=== PATIENT | female | born 1960 | race Two or more races ===

== ENCOUNTER → 2016-11-18 | Outpatient (CLI) | payer BC ==
--- NOTE | 2016-11-23 10:28 | EEG PRO FEE REPORT ---
EEG INTERPRETATION PATIENT NAME: MARY SALGUERO ROOM#: OP ORDER#: [id number] DATE OF STUDY: 11/18/2016 : 1960 REFERRING MD: Kasi Haider MD DIAGNOSIS: Syncope REPORT The background activity posteriorly is 8-9 Hz alpha with some superimposed motion artifact particularly frontally and some EKG artifact noted. No major arrhythmia is seen. No focal slowing, amplitude asymmetry, or epileptiform discharges were seen. No video was done with this study. IMPRESSION Normal EEG INTERPRETING PHYSICIAN: TEZ FUENTES M.D. /: MTEFJANELLE TT: 0923 ID: [id number] /: [id number] TD: [id number] JOB: [id number] cc:TEZ FUENTES M.D. >
== END ==
LOC: NEURO 08:25
PROVIDERS: ATTEND Family Medicine
DX: R55 Syncope and collapse (principal)
CPT/HCPCS: 95819